=== PATIENT | female | born 1980 ===

== ENCOUNTER 2022-10-05 13:31 | Emergency (ER) | payer OTHER ==
[~2022-10-05] VITALS: Ht 165.1 cm; Wt 63.5 kg
[2022-10-05] MEDS ORDERED: ARMOUR THYROID180 M1 PO (13:55)
== END 2022-10-05 17:41 | disposition home or self-care (01) ==
LOC: ER 13:31
DX: H10.33 Unspecified acute conjunctivitis, bilateral (principal); E06.9 Thyroiditis, unspecified